=== PATIENT | male | born 1990 | race Two or more races ===

== ENCOUNTER 2020-12-02 14:44 | Emergency (ER) | payer SELFPAY ==
[~2020-12-02] VITALS: Ht 162.6 cm; Wt 72.6 kg
[2020-12-02 20:10] VITALS: BP 125/71
== END 2020-12-02 20:24 | disposition home or self-care (01) ==
LOC: ER 14:44
DX: S09.90XA Unspecified injury of head, initial encounter (principal); S00.91XA Abrasion of unspecified part of head, initial encounter; X58.XXXA Exposure to other specified factors, initial encounter; Y93.89 Activity, other specified; Y92.89 Other specified places as the place of occurrence of the external cause; Y99.8 Other external cause status
CPT/HCPCS: 70450; 99284; J7030

== ENCOUNTER 2024-04-30 16:50 | Emergency (ER) | payer MEDICAID, OTHER ==
[~2024-04-30] VITALS: Ht 162.6 cm; Wt 73.3 kg
[2024-04-30 18:14] VITALS: BP 115/69; PULSE 74; RESP 16; TEMP 99.2; O2SAT 97
[2024-04-30] MEDS ORDERED: HYDR50TA32 PO (18:29)
== END 2024-04-30 18:32 | disposition home or self-care (01) ==
LOC: ER 16:50
DX: F41.9 Anxiety disorder, unspecified (principal)